=== PATIENT | female | born 1980 | race Caucasian/White ===

== ENCOUNTER 2017-06-09 22:23 | Emergency (ER) | payer SELFPAY ==
[~2017-06-09] VITALS: Ht 167.6 cm; Wt 81.6 kg
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
[2017-06-09] MEDS ORDERED: ONDANSETRON 4 MG TAB.RAPDIS PO ONE (23:30)
[2017-06-09] MEDS ORDERED: oxyCODONE/APAP (5/325 MG) 1 UDTAB TABLET PO ONE (23:30)
[2017-06-09] MEDS ORDERED: ONDANSETRON 4 MG TAB.RAPDIS ONE (23:40)
[2017-06-09] MEDS ORDERED: oxyCODONE/APAP (5/325 MG) 1 UDTAB TABLET ONE (23:40)
[2017-06-10 02:28] VITALS: BP 134/98
== END 2017-06-10 02:29 | disposition home or self-care (01) ==
LOC: ER 22:26
DX: R07.81 Pleurodynia (principal); M54.5 Low back pain; V49.49XA Driver injured in collision with other motor vehicles in traffic accident, initial encounter; Y93.89 Activity, other specified; Y92.413 State road as the place of occurrence of the external cause; Y99.8 Other external cause status
CPT/HCPCS: 71250; 99284; A4606; Q0162; Z7610